=== PATIENT | male | born 1975 | race Caucasian/White ===

== ENCOUNTER 2016-12-30 02:21 | Inpatient (IN) | payer OTHER ==
[~2016-12-30] VITALS: Ht 170.2 cm; Wt 78.5 kg
[2016-12-30 02:49] LABS: CALCIUM 8.6 mg/dL (8.5-10.1); CARBON DIOXIDE 27.8 mmol/L (21-32); CHLORIDE SERUM 107 mmol/L (98-107); CREATININE SERUM 0.8 mg/dL (0.7-1.3); GFR1 > 60 mL/min; GLUCOSE SERUM 104 mg/dL (74-106); POTASSIUM SERUM 3.9 mmol/L (3.5-5.1); SODIUM SERUM 146 mmol/L (136-145)
[2016-12-30 02:55] LABS: ALBUMIN 4.2 g/dL (3.4-5.0); ALKALINE PHOSPHATASE 97 U/L (46-116); ALT/SGPT 52 U/L (16-63); AST/SGOT 37 U/L (15-37); BILIRUBIN TOTAL 0.42 mg/dL (0.20-1.00); TOTAL PROTEIN, SERUM 8.4 g/dL (6.4-8.2)
[2016-12-30 03:18] LABS: PLATELET COUNT 243 x10^3mcL (130-400)
[2016-12-30 03:23] LABS: BASOPHIL % 14.6 % (0-2)
[2016-12-30] MEDS ORDERED: LOSARTAN POTAS100 M1 PO (06:41)
[2016-12-30 07:52] LABS: CHOLESTEROL/HDL RATIO 3.3
[2016-12-30 07:57] LABS: T3 TOTAL 1.11 ng/mL
[2016-12-30 08:19] LABS: FREE T4 0.97 ng/dL (0.76-1.46); FREE THYROXINE INDEX 2.7 ug/dL (1.4-4.5); T4(THYROXINE) 8.2 ug/dL (4.7-13.3)
[2016-12-30 09:39] VITALS: BP 114/82
[2016-12-30 15:37] LABS: microscopic required? NO
[2016-12-30 16:03] LABS: UA SPECIFIC GRAVITY 1.015 (1.005-1.035); urine erythrocyte NEGATIVE (NEGATIVE)
[2016-12-30 16:34] LABS: AMPHETAMINE QUAL UR NONE DETECTED (NEG <=1000)
[2016-12-30 18:11] VITALS: BP 131/82
[2016-12-30 21:22] VITALS: BP 104/64
[2016-12-30] MEDS ORDERED: BENZTROPINE ME0.5 MG PO (22:55)
[2016-12-30] MEDS ORDERED: ACAMPROSATE CA333 MG PO (22:56)
[2016-12-30] MEDS ORDERED: OLANZAPINE15 M2 PO (22:57)
[2016-12-30] MEDS ORDERED: FLUOXETINE40 MG PO (22:57)
[2016-12-30] MEDS ORDERED: DEPAKOTE ER250 M1 PO (22:58)
[2016-12-30] MEDS ORDERED: BEN20 PO (22:59)
[2016-12-31 05:29] VITALS: BP 122/83
[2016-12-31 06:19] LABS: CALCIUM 8.5 mg/dL (8.5-10.1); CARBON DIOXIDE 27.9 mmol/L (21-32); CHLORIDE SERUM 104 mmol/L (98-107); CREATININE SERUM 0.9 mg/dL (0.7-1.3); GFR1 > 60 mL/min; GLUCOSE SERUM 87 mg/dL (74-106); PHOSPHOROUS 3.4 mg/dL (2.5-4.9); POTASSIUM SERUM 3.6 mmol/L (3.5-5.1); SODIUM SERUM 139 mmol/L (136-145)
[2016-12-31 07:00] LABS: BASOPHIL % 0.6 % (0-2); PLATELET COUNT 178 x10^3mcL (130-400); RED CELL DISTRIBUTION WIDTH 13.6 % (11.5-14.5)
[2016-12-31 09:15] VITALS: BP 128/66
[2016-12-31 12:44] VITALS: BP 136/84
[2016-12-31 17:59] VITALS: BP 130/94
[2016-12-31 20:59] VITALS: BP 142/92
[2017-01-01 05:30] VITALS: BP 118/78
[2017-01-01 06:22] LABS: CALCIUM 8.6 mg/dL (8.5-10.1); CHLORIDE SERUM 105 mmol/L (98-107); CREATININE SERUM 0.8 mg/dL (0.7-1.3); GFR1 > 60 mL/min; GLUCOSE SERUM 90 mg/dL (74-106); MAGNESIUM 1.8 mg/dL (1.8-2.4); PHOSPHOROUS 3.4 mg/dL (2.5-4.9); POTASSIUM SERUM 3.6 mmol/L (3.5-5.1); SODIUM SERUM 139 mmol/L (136-145)
[2017-01-01 07:47] LABS: PLATELET COUNT 151 x10^3mcL (130-400)
[2017-01-01 08:06] LABS: BASOPHIL % 2.4 % (0-2)
[2017-01-01 09:56] VITALS: BP 146/105
[2017-01-01 12:16] VITALS: BP 110/63
[2017-01-01 20:28] VITALS: BP 110/63
[2017-01-01] MEDS ORDERED: LOP600 PO (20:44)
[2017-01-01] MEDS ORDERED: ATI1 PO (20:44)
[2017-01-01] MEDS ORDERED: LAC30L PO (20:45)
[2017-01-01] MEDS ORDERED: THI100 PO (20:45)
[2017-01-01] MEDS ORDERED: FOL1 PO (20:45)
[2017-01-01] MEDS ORDERED: THERA TABS1 TAB PO (20:45)
== END 2017-01-01 21:28 | DRG 896 ==
LOC: ED 02:21 → DU 06:47
PROVIDERS: Emergency Medicine; Family Medicine; ADMIT Family Medicine
DX: F10.129 Alcohol abuse with intoxication, unspecified (principal); G92 Toxic encephalopathy; E87.0 Hyperosmolality and hypernatremia; R45.851 Suicidal ideations; F20.9 Schizophrenia, unspecified; K72.90 Hepatic failure, unspecified without coma; E02 Subclinical iodine-deficiency hypothyroidism; I16.0 Hypertensive urgency; E78.1 Pure hyperglyceridemia; R45.850 Homicidal ideations; Z68.27 Body mass index [BMI] 27.0-27.9, adult; D75.89 Other specified diseases of blood and blood-forming organs; T51.0X1A Toxic effect of ethanol, accidental (unintentional), initial encounter
CPT/HCPCS: 80307; 83880; 84439; G0480; J2270; J3411; J3475; J3490; J7030

== ENCOUNTER 2017-04-24 17:26 | Emergency (ER) | payer OTHER, MEDICAID ==
[~2017-04-24 17:26] MED LIST: ACAMPROSATE CA333 MG PO; ATI1 PO; BEN20 PO; BENZTROPINE ME0.5 MG PO; DEPAKOTE ER250 M1 PO; FLUOXETINE40 MG PO; FOL1 PO; LAC30L PO; LOP600 PO; LOSARTAN POTAS100 M1 PO; OLANZAPINE15 M2 PO; THERA TABS1 TAB PO; THI100 PO
[2017-04-24 18:31] LABS: BASOPHIL % 0.4 % (0-2); PLATELET COUNT 182 x10^3mcL (130-400); RED CELL DISTRIBUTION WIDTH 14.4 % (11.5-14.5)
[2017-04-24 18:47] LABS: CALCIUM 8.8 mg/dL (8.5-10.1); CARBON DIOXIDE 22.1 mmol/L (21-32); CHLORIDE SERUM 107 mmol/L (98-107); CREATININE SERUM 1.1 mg/dL (0.7-1.3); GFR1 > 60 mL/min; GLUCOSE SERUM 98 mg/dL (74-106); POTASSIUM SERUM 3.8 mmol/L (3.5-5.1); SODIUM SERUM 146 mmol/L (136-145)
[2017-04-24 18:57] LABS: ALBUMIN 3.9 g/dL (3.4-5.0); ALKALINE PHOSPHATASE 115 U/L (46-116); ALT/SGPT 52 U/L (16-63); AST/SGOT 44 U/L (15-37); BILIRUBIN TOTAL 0.71 mg/dL (0.20-1.00); LIPASE 207 IU/L (73-393); TOTAL PROTEIN, SERUM 7.7 g/dL (6.4-8.2)
[2017-04-24 19:47] LABS: AMPHETAMINE QUAL UR NONE DETECTED (NEG <=1000)
[2017-04-24 20:39] VITALS: BP 138/90
== END 2017-04-24 20:39 | disposition home or self-care (01) ==
LOC: ED 17:26
PROVIDERS: Emergency Medicine
DX: E86.0 Dehydration (principal); F10.239 Alcohol dependence with withdrawal, unspecified; F41.9 Anxiety disorder, unspecified; I10 Essential (primary) hypertension; F99 Mental disorder, not otherwise specified; Z88.8 Allergy status to other drugs, medicaments and biological substances; Z79.899 Other long term (current) drug therapy
CPT/HCPCS: G0480; J2060; J2405; J7030

== ENCOUNTER 2017-04-26 15:53 | Emergency (ER) | payer OTHER, MEDICAID ==
[~2017-04-26] VITALS: Ht 170.2 cm; Wt 82.3 kg
[2017-04-26 19:05] LABS: BASOPHIL % 0.6 % (0-2); PLATELET COUNT 218 x10^3mcL (130-400); RED CELL DISTRIBUTION WIDTH 14.5 % (11.5-14.5)
[2017-04-26 19:12] LABS: AMPHETAMINE QUAL UR NONE DETECTED (NEG <=1000)
[2017-04-26 19:28] LABS: CALCIUM 8.7 mg/dL (8.5-10.1); CARBON DIOXIDE 23.3 mmol/L (21-32); CHLORIDE SERUM 105 mmol/L (98-107); CREATININE SERUM 0.9 mg/dL (0.7-1.3); GFR1 > 60 mL/min; GLUCOSE SERUM 88 mg/dL (74-106); POTASSIUM SERUM 3.7 mmol/L (3.5-5.1); SODIUM SERUM 142 mmol/L (136-145)
[2017-04-26 19:32] LABS: ALBUMIN 3.9 g/dL (3.4-5.0); ALKALINE PHOSPHATASE 155 U/L (46-116); ALT/SGPT 49 U/L (16-63); AST/SGOT 44 U/L (15-37); BILIRUBIN TOTAL 0.6 mg/dL (0.20-1.00); TOTAL PROTEIN, SERUM 7.7 g/dL (6.4-8.2)
[2017-04-27 04:49] VITALS: BP 123/84
== END 2017-04-27 04:49 | disposition home or self-care (01) ==
LOC: ED 15:53
PROVIDERS: Emergency Medicine
DX: F10.129 Alcohol abuse with intoxication, unspecified (principal); I10 Essential (primary) hypertension; F99 Mental disorder, not otherwise specified; Z88.8 Allergy status to other drugs, medicaments and biological substances; Z79.899 Other long term (current) drug therapy
CPT/HCPCS: G0480; J3490

== ENCOUNTER 2017-05-16 20:23 | Inpatient (IN) | payer OTHER, MEDICAID ==
[~2017-05-16] VITALS: Ht 170.2 cm; Wt 83.0 kg
--- NOTE | 2017-05-16 20:59 | NUR ---
PT TO ED FOR MEDCLEARANCE, PER PT, PT HAS AN ACTIVE PLAN TO KILL HIMSELF AND HAS TRIED 4 TIMES BEFORE WITH OVERDOSING ON PILLS, CUTTING RIGHT WRIST AND NOW TODAY PT HAS ABOUT 7-9 SUPERFICIAL SELF INFLICTED LACURATIONS TO RIGTH WRIST, PT STATES THAT HE CUT HIMSELF TODAY TO JUST TO FEEL SOMETHING, PT HAS EXTENSIVE HISTORY OF SI AND ADMITS TO HARMING HIMSELF BEFORE. [employer] SERVICES INTERN PACO AND [employer]PHON NOTIFIED.
[2017-05-16 22:53] LABS: BASOPHIL % 0.6 % (0-2); PLATELET COUNT 322 x10^3mcL (130-400); RED CELL DISTRIBUTION WIDTH 14.2 % (11.5-14.5)
[2017-05-16 23:04] LABS: CALCIUM 9.5 mg/dL (8.5-10.1); CHLORIDE SERUM 108 mmol/L (98-107); CREATININE SERUM 1.1 mg/dL (0.7-1.3); GFR1 > 60 mL/min; GLUCOSE SERUM 100 mg/dL (74-106); POTASSIUM SERUM 4.4 mmol/L (3.5-5.1); SODIUM SERUM 145 mmol/L (136-145)
[2017-05-16 23:10] LABS: AMPHETAMINE QUAL UR NONE DETECTED (NEG <=1000)
--- NOTE | 2017-05-16 23:47 | NUR ---
PT STATED THAT HE IS FEELING ANXIOUS.MD GOMEZ MADE AWARE
--- NOTE | 2017-05-17 01:14 | NUR ---
PT LAYING IN BED, WATCHING TV. RESPIRATIONS EVEN AND UNLABORED. NO ACUTE DISTRESS NOTED. BED IN LOW POSITION. IN FULL VIEW OF NURSE'S STATION.
--- NOTE | 2017-05-17 02:57 | NUR ---
PT SLEEPING, IN POSITION OF COMFORT. PT EASILY AROUSABLE TO VERBAL STIMULI. RESPIRATIONS EVEN AND UNLABORED. NO ACUTE DISTRESS NOTED. BED IN LOW POSITION. CALL LIGHT WITHIN REACH. IN FULL VIEW OF NURSE'S STATION.
--- NOTE | 2017-05-17 06:31 | NUR ---
ATTEMPTED TO CONTACT PT BOARD & CARE AT [phone] (LAYNE MCCLAIN), UNABLE TO REACH ANYONE AT THIS TIME.
--- NOTE | 2017-05-17 07:15 | NUR ---
ASSUMED CARE OF PATIENT . HE IS CURRENTLY ASLEEP. PER dR. Rosalinda FLOOD TO CALL FOR TELE PSYCH CONSULT. VSS.
--- NOTE | 2017-05-17 08:15 | NUR ---
DR. CALVILLO FROM TELE PSYCH GIVEN REPORT . SHE CALLED AND IS ON CONSULT WITH PATIENT.
--- NOTE | 2017-05-17 09:03 | NUR ---
CONSULT WAS COMPLETED, AWAITING CALL REGARDING PLAN OF CARE. PATIENT IS SLEEPING.
--- NOTE | 2017-05-17 09:12 | NUR ---
PER CONSULT HTEY RECOMMEND 5150 AND TRANSFER TO INPATIENT PSYCH. DR. LEVY AWARE.
--- NOTE | 2017-05-17 11:28 | NUR ---
AMBULATED TO & FROM THE BATHROOM.
--- NOTE | 2017-05-17 12:58 | NUR ---
REPORT TO CHRISTIAN BUI ASSUMING CARE. PATIENT IS STABLE FOR TRANSFER.
[2017-05-17 13:06] VITALS: BP 123/87
[2017-05-17 13:34] VITALS: BP 144/90
--- NOTE | 2017-05-17 13:39 | NUR ---
RECEIVED PT FROM ED VIA STEPHANIE. ORIENTED PT TO ROOM AND SURROUNDINGS. IV NOTED TO RFA PATENT AND INTACT .TELE 37 PLACED ON PT READING NSR. INSTRUCTED PT ON THE USE OF CALL LIGHT FOR ASSISTANCE. ENDORSED PT TO PRIMARY NURSE CHRISTIAN
--- NOTE | 2017-05-17 13:50 | NUR ---
IV FLUIDS STARTED. PT DENIES PAIN AT MOMENT. APPEARS CALM AND COOPERATIVE OF CARE. CALL LIGHT WITHIN REACH. WILL CONTINUE TO MONITOR.
[2017-05-17 15:24] LABS: CHOLESTEROL/HDL RATIO 2.7; MAGNESIUM 1.7 mg/dL (1.8-2.4); PHOSPHOROUS 4.5 mg/dL (2.5-4.9)
[2017-05-17 15:36] LABS: FREE T4 0.89 ng/dL (0.76-1.46); FREE THYROXINE INDEX 2.7 ug/dL (1.4-4.5); T4(THYROXINE) 8.3 ug/dL (4.7-13.3)
[2017-05-17 15:45] LABS: T3 TOTAL 0.86 ng/mL
--- NOTE | 2017-05-17 16:50 | NUR ---
PT C/O AGITATION. MEDICATED PER EMAR. PT TOLERATED WELL. WILL CONTINUE TO MONITOR.
--- NOTE | 2017-05-17 17:55 | NUR ---
PT STATES FEELING CALM AFTER MEDICATION ADMINISTRATION. VOICES COMFORT. DENIES THOUGHT OF HURTING SELF OR OTHERS AT MOMENT. CALL LIGHT WITHIN REACH.
--- NOTE | 2017-05-17 19:33 | NUR ---
SHIFT REASSESSMENT DONE.PATIENT ALERT AND ORIENTED.MAKE NEEDS KNOWN,HAS A SITTER FOR SAFETY.POSITIVE SUICIDAL ATTEMPT.BREATHING EASY.NS AT 100 CC/ HOUR.R ARM HAS SCRATCHES/RED.TELE 37 SR.CALL LIGHT IN REACH.ALSO ETOH PROTOCOL.
[2017-05-17 20:53] VITALS: BP 135/91
--- NOTE | 2017-05-17 21:46 | NUR ---
SMALL BOWEL FOLLOW THRU WAS COMPLETED FROM DAY SHIFT.ALL NG MEDS GIVEN,SUCTION OFF FOR NOW TO ABSORB MEDS,OFF FOR 30 MINUTES.GIVEN ALSO PAIN SHOT REQUESTED BY SISTER,SAYS HE HAS PAIN,GIVEN ZOFRAN ALSO IVP.REPOSITIONED FOR COMFORT,SOFT WRIST RESTRAINT RELEASE AND REAPPLIED AFTER 10 MINUTES,CIRCULATION ADEQUATE ON BOTH HANDS,ARM BAND REMOVED IN HIS R HAND,TIGHT WITH ALREADY MELISSA IN HIS SKIN.CHARGE NURSE MADE AWARE.
--- NOTE | 2017-05-17 22:04 | NUR ---
PM MEDS GIVEN,SWALLOWS WELL.GIVEN ATIVAN PO.
--- NOTE | 2017-05-18 01:53 | NUR ---
PATIENT SOUND ASLEEP WHEN CHECKED,SITTER MADE AWARE THAT NEEDED UA TO SEND TO LAB.
[2017-05-18 05:37] VITALS: BP 134/92
--- NOTE | 2017-05-18 05:41 | NUR ---
I AND O MEASURED,UA SENT TO LAB.NO DISTRESS THIS SHIFT.WILL ENDORSE TO NEXT SHIFT.
[2017-05-18 06:34] LABS: microscopic required? NO
[2017-05-18 07:23] LABS: ALKALINE PHOSPHATASE 96 U/L (46-116); ALT/SGPT 30 U/L (16-63); AST/SGOT 18 U/L (15-37); BILIRUBIN DIRECT 0.17 mg/dL (0.0-0.2); BILIRUBIN TOTAL 0.7 mg/dL (0.20-1.00); CALCIUM 8.2 mg/dL (8.5-10.1); CARBON DIOXIDE 25.9 mmol/L (21-32); CHLORIDE SERUM 107 mmol/L (98-107); GFR1 > 60 mL/min; GLUCOSE SERUM 83 mg/dL (74-106); MAGNESIUM 1.7 mg/dL (1.8-2.4); POTASSIUM SERUM 3.5 mmol/L (3.5-5.1); SODIUM SERUM 139 mmol/L (136-145); TOTAL PROTEIN, SERUM 6.8 g/dL (6.4-8.2)
--- NOTE | 2017-05-18 07:24 | NUR ---
CANCELLATION REQUESTED FOR ECHOCARDIOGRAM
[2017-05-18 07:25] LABS: ALBUMIN 3.3 g/dL (3.4-5.0)
[2017-05-18 07:29] LABS: BASOPHIL % 0.6 % (0-2); PLATELET COUNT 217 x10^3mcL (130-400); RED CELL DISTRIBUTION WIDTH 14.3 % (11.5-14.5)
[2017-05-18 07:50] LABS: urine erythrocyte NEGATIVE (NEGATIVE)
--- NOTE | 2017-05-18 07:56 | NUR ---
RECEIVED AWAKE, ALERT AND ORIENTED. NO RESP. DISTRESS NOTED. NO C/O PAIN OR DISCOMFORT. IVF INFUSING WELL AND SITE CLEAR. 1:1 SITTER AT BEDSIDE. CALL LIGHT WITHIN REACH. WILL CONTINUE W/PLAN OF CARE.
[2017-05-18 09:34] VITALS: BP 134/96
[2017-05-18 13:25] VITALS: BP 136/86
[2017-05-18 16:32] VITALS: Ht 170.2 cm; Wt 83.0 kg
[2017-05-18 17:15] VITALS: BP 139/88
--- NOTE | 2017-05-18 18:24 | NUR ---
PT REMAINS IN NO DISTRESS. AWAKE, ALERT AND ORIENTED. NO CHANGES IN VS. NO C/O PAIN OR DISCOMFORT AT THIS TIME. IVF INFUSING WELL AND SITE CLEAR. 5150 DC'D. CALL LIGHT WITHIN REACH. WILL BE ENDORSED TO INCOMING SHIFT.
--- NOTE | 2017-05-18 20:00 | NUR ---
RECEIVED PT IN BED, RESTING QUIETLY. ALERT AND ORIENTED. DENIES HEADACHE/DIZZINESS, RESP. EVEN AND UNLABORED.LUNGS OUNDS CLEAR BILAT. ON ROOM AIR, NO DISTRESS NOTED. NO TELE. DENIES CHEST PAIN OR ANY DISCOMFORT AT THIS TIME. IVF, NS AT 100ML/HR, INTACT AND INFUSING WELL, SITE CLEAR. NO COMPLAINTS NOTED AT THIS TIME. AMBULATORY. ASSISTED WITH HS CARE. CALL LIGHT WITHIN REACH. WILL CONTINUE TO MONITOR.
[2017-05-18 21:58] VITALS: BP 132/81
--- NOTE | 2017-05-19 00:05 | NUR ---
NO COMPLAINTS NOTED AT THIS TIME. APPEARS ASLEEP. WITH EYES CLOSED. EASILY AROUSABLE.WILL CONTINUE TO MONITOR.
[2017-05-19 06:02] VITALS: BP 127/80
[2017-05-19 06:16] LABS: CALCIUM 8.3 mg/dL (8.5-10.1); CHLORIDE SERUM 109 mmol/L (98-107); CREATININE SERUM 0.9 mg/dL (0.7-1.3); GFR1 > 60 mL/min; GLUCOSE SERUM 89 mg/dL (74-106); MAGNESIUM 1.8 mg/dL (1.8-2.4); POTASSIUM SERUM 3.6 mmol/L (3.5-5.1); SODIUM SERUM 145 mmol/L (136-145)
--- NOTE | 2017-05-19 06:25 | NUR ---
SLEPT WELL DURING THE NIGHT. NO COMPLAINTS NOTED . AFEBRILE AND VITAL SIGNS STABLE. DUE MEDS GIVEN ORDERED, LIDIA. WELL. IVF INTACT AND INFUSING WELL. SITE CLEAR. RESP. EVEN AND UNLABORED. NO DISTRESS NOTED. DENIES ANY SUICIDAL IDEATION. WILL ENDORSE TO INCOMING NURSE.
--- NOTE | 2017-05-19 07:10 | NUR ---
RECEIVED Pt. AAOX4, RESPIRATIONS EVEN AND UNLABORED. DENIES PAIN/DISCOMFORT. DENIES WANTING TO HURT SELF. NO DISTRESS NOTED. RFA SCABBED CUTS AVERY NO REDNESS/SWELLING/BLEEDING/DRAINAGE NOTED. IVF RUNNING TO IV AT RFA PATENT AND INTACT. BED LOW/LOCKED. CALL LIGHT IN REACH. WILL CONTINUE TO MONITOR.
--- NOTE | 2017-05-19 08:41 | NUR ---
MADE ROUNDS WITH DR. HAYS AND MEDICINE TEAM, Pt. POSSIBLE DISCHARGE TODAY AND AGREED WITH PLAN OF CARE.
[2017-05-19 10:12] VITALS: BP 142/91
--- NOTE | 2017-05-19 10:36 | NUR ---
Pt. SHOWERED TOLERATED WELL. Pt. GOWN AND LINENS CHANGED, Pt. CLEAN AND DRY AT THSI TIME. RESUMED IVF TO [facility] IV.
[2017-05-19 14:58] VITALS: BP 142/91
--- NOTE | 2017-05-19 15:08 | NUR ---
Pt. AAOX4 ALL WOUND CARE AND DISCHARGE INSTRUCTIONS EXPLAINED TO Pt. AND VERBALIZED UNDERSTANDING. Pt. ALSO INSTRUCTED TO FOLLOW UP WITH DR. MACK AND VERBALIZED UNDERSTANDING. WAITING FOR Pt. BROTHER TO ARRIVE FOR TRANSPORTATION.
--- NOTE | 2017-05-19 15:55 | NUR ---
Pt. DENIES WANTING TO HARM SELF AT TIME OF DISCHARGE.
--- NOTE | 2017-05-19 15:55 | NUR ---
Pt. AAOX4, RESPIRATIONS EVEN AND UNLABORED. DENIES PAIN/DISCOMFORT AT THIS TIME. NO DISTRESS NOTED. IV RIGHT FOREARM REMOVED WITH CATH INTACT. PRESSURE APPLIED AND NO BLEEDING NOTED. Pt. INSTRUCTED TO FOLLOW UP WITH DR. MACK AND YASHIRA BUCKLEY AND VERBALIZED UNDERSTANDING. RIGHT FOREARM SCRATCHES/CUTS AVERY NO S/S OF INFECTION NOTED AND PICTURES TAKEN. Pt. INSTRUCTED TO KEEP CLEAN AND DRY. Pt. LEFT WITH ALL BELONGINGS AND Pt. BROTHER.
== END 2017-05-19 15:55 | disposition home or self-care (01) | DRG 917 ==
LOC: ED 20:23 → MU 05-17 11:44 → DU 05-17 11:44 → MU 05-17 11:44 → DU 05-17 13:06 → MU 05-18 10:26
PROVIDERS: Emergency Medicine; Family Medicine; ADMIT Student in an Organized Health Care Education/Training Program
DX: T51.0X1A Toxic effect of ethanol, accidental (unintentional), initial encounter (principal); G92 Toxic encephalopathy; K72.91 Hepatic failure, unspecified with coma; R45.851 Suicidal ideations; F10.221 Alcohol dependence with intoxication delirium; F20.9 Schizophrenia, unspecified; S51.811A Laceration without foreign body of right forearm, initial encounter; F12.10 Cannabis abuse, uncomplicated; F15.29 Other stimulant dependence with unspecified stimulant-induced disorder; E83.42 Hypomagnesemia; D75.89 Other specified diseases of blood and blood-forming organs; I10 Essential (primary) hypertension; E78.1 Pure hyperglyceridemia; F17.210 Nicotine dependence, cigarettes, uncomplicated; Z68.28 Body mass index [BMI] 28.0-28.9, adult; X78.1XXA Intentional self-harm by knife, initial encounter; Y92.042 Bedroom in boarding-house as the place of occurrence of the external cause; Y90.8 Blood alcohol level of 240 mg/100 ml or more
CPT/HCPCS: 83880; 84439; G0480; J7030; Q0092

== ENCOUNTER 2017-05-26 00:55 | Emergency (ER) | payer OTHER, MEDICAID ==
[2017-05-26 02:08] VITALS: BP 136/83
== END 2017-05-26 02:08 | disposition home or self-care (01) ==
LOC: ED 00:55
DX: F41.9 Anxiety disorder, unspecified (principal); I10 Essential (primary) hypertension; F15.90 Other stimulant use, unspecified, uncomplicated; Z88.8 Allergy status to other drugs, medicaments and biological substances; Z86.59 Personal history of other mental and behavioral disorders
CPT/HCPCS: J2060

== ENCOUNTER 2018-01-13 08:59 | Emergency (ER) | payer OTHER ==
[~2018-01-13] VITALS: Ht 170.2 cm; Wt 92.5 kg
[2018-01-13 09:06] VITALS: Ht 170.2 cm; Wt 92.5 kg
[2018-01-13 10:44] VITALS: BP 135/81
== END 2018-01-13 09:30 | disposition home or self-care (01) ==
LOC: ED 08:59
DX: K62.89 Other specified diseases of anus and rectum (principal); K59.00 Constipation, unspecified; I10 Essential (primary) hypertension; F20.9 Schizophrenia, unspecified; F12.90 Cannabis use, unspecified, uncomplicated; F17.210 Nicotine dependence, cigarettes, uncomplicated; F15.90 Other stimulant use, unspecified, uncomplicated; Z71.6 Tobacco abuse counseling; Z88.8 Allergy status to other drugs, medicaments and biological substances
CPT/HCPCS: 99406

== ENCOUNTER 2018-05-06 12:02 | Emergency (ER) | payer OTHER ==
[~2018-05-06] VITALS: Ht 170.2 cm; Wt 79.8 kg
[2018-05-06 12:21] VITALS: Ht 170.2 cm; Wt 79.8 kg
[2018-05-06 14:58] VITALS: BP 137/74
== END 2018-05-06 14:58 | disposition home or self-care (01) ==
LOC: ED 12:02
DX: F41.9 Anxiety disorder, unspecified (principal); F15.20 Other stimulant dependence, uncomplicated; R00.2 Palpitations; I10 Essential (primary) hypertension; F20.9 Schizophrenia, unspecified; Z88.8 Allergy status to other drugs, medicaments and biological substances

== ENCOUNTER 2018-06-28 18:14 | Emergency (ER) | payer OTHER ==
[~2018-06-28] VITALS: Ht 170.2 cm; Wt 74.4 kg
[2018-06-28 18:36] VITALS: Ht 170.2 cm; Wt 74.4 kg
[2018-06-28 19:14] LABS: BASOPHIL % 0.9 % (0-2); PLATELET COUNT 256 x10^3mcL (130-400); RED CELL DISTRIBUTION WIDTH 14.7 % (11.5-14.5)
[2018-06-28 19:33] LABS: CALCIUM 9.4 mg/dL (8.5-10.1); CARBON DIOXIDE 22.5 mmol/L (21-32); CHLORIDE SERUM 107 mmol/L (98-107); GFR1 > 60 mL/min; GLUCOSE SERUM 87 mg/dL (74-106); POTASSIUM SERUM 3.5 mmol/L (3.5-5.1); SODIUM SERUM 144 mmol/L (136-145)
[2018-06-28 19:36] LABS: ALBUMIN 4.1 g/dL (3.4-5.0); ALKALINE PHOSPHATASE 63 U/L (46-116); ALT/SGPT 42 U/L (16-63); AST/SGOT 135 U/L (15-37); BILIRUBIN TOTAL 0.61 mg/dL (0.20-1.00); TOTAL PROTEIN, SERUM 7.9 g/dL (6.4-8.2)
[2018-06-29 03:13] LABS: AMPHETAMINE QUAL UR NONE DETECTED (See below)
[2018-06-29 07:58] VITALS: BP 141/79
== END 2018-06-29 08:31 ==
LOC: ED 18:14
PROVIDERS: Emergency Medicine
DX: R45.851 Suicidal ideations (principal); I10 Essential (primary) hypertension; F20.9 Schizophrenia, unspecified; Z88.8 Allergy status to other drugs, medicaments and biological substances; Z90.89 Acquired absence of other organs
CPT/HCPCS: 36415; G0480; J2060

== ENCOUNTER 2018-08-03 15:07 | Emergency (ER) | payer OTHER | END 2018-08-03 16:41 | disposition other institution (70) | LOC: ED 15:07 | DX: Z02.89 Encounter for other administrative examinations (principal) ==

== ENCOUNTER 2018-08-03 15:07 | Emergency (ER) | payer OTHER ==
[~2018-08-03] VITALS: Ht 170.2 cm; Wt 78.9 kg
[2018-08-03 15:42] VITALS: Ht 170.2 cm; Wt 78.9 kg
[2018-08-03 16:41] VITALS: BP 119/74
== END 2018-08-03 16:41 | disposition other institution (70) ==
LOC: ED 15:07
DX: T65.891A Toxic effect of other specified substances, accidental (unintentional), initial encounter (principal); I10 Essential (primary) hypertension; Z88.8 Allergy status to other drugs, medicaments and biological substances; Z88.2 Allergy status to sulfonamides; F20.9 Schizophrenia, unspecified; Z77.098 Contact with and (suspected) exposure to other hazardous, chiefly nonmedicinal, chemicals; Y92.89 Other specified places as the place of occurrence of the external cause

== ENCOUNTER 2018-09-13 17:32 | Emergency (ER) | payer OTHER ==
[~2018-09-13] VITALS: Ht 170.2 cm; Wt 79.5 kg
[2018-09-13 17:39] VITALS: BP 147/97; Ht 170.2 cm; Wt 79.5 kg
== END 2018-09-13 18:31 | disposition home or self-care (01) ==
LOC: ED 17:32
DX: F20.9 Schizophrenia, unspecified (principal); F31.9 Bipolar disorder, unspecified; Z76.0 Encounter for issue of repeat prescription

== ENCOUNTER 2019-05-28 12:26 | Emergency (ER) | payer OTHER ==
[~2019-05-28] VITALS: Ht 170.2 cm; Wt 70.3 kg
[2019-05-28 12:35] VITALS: Ht 170.2 cm; Wt 70.3 kg
[2019-05-28 13:10] LABS: BASOPHIL % 0.9 % (0-2)
[2019-05-28 13:14] LABS: PLATELET COUNT 432 x10^3mcL (130-400); RED CELL DISTRIBUTION WIDTH 15.2 % (11.5-14.5)
[2019-05-28 13:42] LABS: CALCIUM 8.6 mg/dL (8.5-10.1); CARBON DIOXIDE 29.3 mmol/L (21-32); CHLORIDE SERUM 102 mmol/L (98-107); CREATININE SERUM 0.9 mg/dL (0.7-1.3); GFR1 > 60 mL/min; GLUCOSE SERUM 96 mg/dL (74-106); POTASSIUM SERUM 4.7 mmol/L (3.5-5.1); SODIUM SERUM 137 mmol/L (136-145)
[2019-05-28 13:46] LABS: ALKALINE PHOSPHATASE 440 U/L (46-116); ALT/SGPT 46 U/L (16-63); AST/SGOT 33 U/L (15-37); BILIRUBIN TOTAL 0.96 mg/dL (0.20-1.00)
[2019-05-28 13:49] LABS: ALBUMIN 2.9 g/dL (3.4-5.0)
[2019-05-28 14:59] VITALS: BP 112/69
== END 2019-05-28 14:35 | disposition home or self-care (01) ==
LOC: ED 12:26
PROVIDERS: Emergency Medicine
DX: G89.18 Other acute postprocedural pain (principal); D64.9 Anemia, unspecified; I10 Essential (primary) hypertension; Z98.890 Other specified postprocedural states
CPT/HCPCS: 99406; J2270; J2405; J7030

== ENCOUNTER 2019-07-30 03:03 | Emergency (ER) | payer OTHER ==
[~2019-07-30] VITALS: Ht 170.2 cm; Wt 74.4 kg
[2019-07-30 04:07] LABS: BASOPHIL % 0.5 % (0-2); PLATELET COUNT 271 x10^3mcL (130-400)
[2019-07-30 04:21] LABS: RED CELL DISTRIBUTION WIDTH 16.6 % (11.5-14.5)
[2019-07-30 04:41] LABS: CALCIUM 9.2 mg/dL (8.5-10.1); CARBON DIOXIDE 24.4 mmol/L (21-32); CHLORIDE SERUM 106 mmol/L (98-107); CREATININE SERUM 0.8 mg/dL (0.7-1.3); GFR1 > 60 mL/min; GLUCOSE SERUM 84 mg/dL (74-106); POTASSIUM SERUM 3.8 mmol/L (3.5-5.1); SODIUM SERUM 142 mmol/L (136-145)
[2019-07-30 04:46] LABS: ALBUMIN 4.2 g/dL (3.4-5.0); ALKALINE PHOSPHATASE 127 U/L (46-116); ALT/SGPT 29 U/L (16-63); AST/SGOT 27 U/L (15-37); BILIRUBIN TOTAL 0.72 mg/dL (0.20-1.00)
[2019-07-30 08:16] LABS: AMPHETAMINE QUAL UR NONE DETECTED (See below)
[2019-07-30 13:50] VITALS: BP 132/89
== END 2019-07-30 13:50 ==
LOC: ED 03:03
PROVIDERS: Student in an Organized Health Care Education/Training Program
DX: S09.90XA Unspecified injury of head, initial encounter (principal); R45.851 Suicidal ideations; I10 Essential (primary) hypertension; F17.210 Nicotine dependence, cigarettes, uncomplicated; X58.XXXA Exposure to other specified factors, initial encounter; Y93.89 Activity, other specified; Y92.89 Other specified places as the place of occurrence of the external cause; Y99.8 Other external cause status
CPT/HCPCS: 36415; G0480